=== PATIENT | female | born 1935 | race Caucasian/White ===

== ENCOUNTER 2017-11-20 08:55 | Emergency (ER) | payer MEDICARE | END 2017-11-20 09:15 | disposition home or self-care (01) | LOC: SCSER 08:55 | DX: J06.9 Acute upper respiratory infection, unspecified (principal); I10 Essential (primary) hypertension; E78.5 Hyperlipidemia, unspecified | CPT/HCPCS: 99283 ==

== ENCOUNTER 2018-01-02 15:18 | Outpatient (CLI) | payer MEDICARE ==
--- NOTE | 2018-01-02 17:02 | RAD ---
RADIOGRAPH CHEST 2 VIEWS: HISTORY: 82-year-old female with cough, chest congestion and low grade fever. FINDINGS: There is no air space density, pulmonary edema, pleural effusion, pneumothorax, or cardiomegaly. IMPRESSION: No acute cardiopulmonary findings. jenn POS: OSIEL
== END 2018-01-02 15:19 | disposition home or self-care (01) ==
LOC: SCSRAD 15:18
PROVIDERS: ATTEND Family Medicine
DX: J18.9 Pneumonia, unspecified organism (principal)
CPT/HCPCS: 71046